=== PATIENT | female | born 1960 | race American Indian/Alaskan Native ===

== ENCOUNTER 2017-10-25 07:18 | Day surgery (SDC) | payer MEDICARE, BC ==
[2017-10-25] MEDS ORDERED: NACL 0.9% 1000 ML 1,000 ML IV SCH (08:00)
[2017-10-25] MEDS ORDERED: WATER FOR IRRIG STERILE IR ONE (08:19)
[2017-10-25] MEDS ORDERED: DIPRIVAN 10 MG/ML IV ONE ×3 (08:27→08:43)
[2017-10-25] MEDS ORDERED: XYLOCAINE MPF 2% ONE (08:30)
--- NOTE | 2017-10-25 09:07 | Anesthesia Day of Surgery ---
Anesthesia Day of Surgery - Day of Surgery Patient Examined: Yes Patient H&P Reviewed: Yes Patient is NPO: Yes
--- NOTE | 2017-10-25 09:18 | Short Stay Summary ---
Short Stay Documentation - Allergies and Medications Current Medications: Allergies No Known Allergies Allergy (Verified 10/24/17 14:57) Home Medications Medication Instructions Recorded Confirmed Last Taken Type Dialyvite 800 Plus D Wafer 1 tab PO DAILY 10/24/17 10/24/17 10/24/17 History Metoprolol 50 mg PO DAILY 10/24/17 10/24/17 10/24/17 History Ranitidine HCl 150 mg PO DAILY 10/24/17 10/24/17 10/24/17 History Renvela 800 mg PO DAILY 10/24/17 10/24/17 10/24/17 History Sensipar 30 mg PO Q3W 10/24/17 10/24/17 10/24/17 History amLODIPine 10 mg PO DAILY 10/25/17 10/25/17 10/24/17 History Active Medications Sodium Chloride (Nacl 0.9% 1000 Ml) 1,000 mls @ 50 mls/hr IV DIRECT LJ - Brief post op/procedure progress note Date of procedure: 10/25/17 Pre-op diagnosis: 1. Colon cancer screening 2. Anemia iron deficiency anemia Post-op diagnosis: same (1. Internal hemorrhoids 2. Poor prep) Procedure: Colonoscopy Anesthesia: MAC Findings: as above Surgeon: GERARD RAINES Estimated blood loss: none Pathology: none Specimen disposition: to lab - Disposition Condition at discharge: Stable Disposition: -01 TO HOME OR SELFCARE Short Stay Discharge Plan Activity: no restrictions Weight Bearing Status: Full Weight Bearing Diet: regular, low salt, renal
--- NOTE | 2017-10-25 09:19 | Anesthesia Consultation ---
Anesthesia Consult and Med Hx Date of service: 10/25/17 - Airway Anesthetic Teeth Evaluation: Poor, Partials (upper) ROM Head & Neck: Adequate Mental/Hyoid Distance: Adequate Mallampati Class: Class I Intubation Access Assessment: Good - Pulmonary Exam CTA: Yes - Cardiac Exam Cardiac Exam: RRR - Pre-Operative Health Status ASA Pre-Surgery Classification: ASA3 Proposed Anesthetic Plan: MAC - Cardiovascular System Hx Hypertension: Yes - Endocrine Hx Renal Disease: Yes Hx End Stage Renal Disease: Yes
[2017-10-25 09:56] VITALS: BP 109/56
--- NOTE | 2017-10-25 11:26 | Post Anesthesia Evaluation ---
- Post Anesthesia Evaluation Patient Participated: Yes Airway Patent: Yes Stable Respiratory Function: Yes Nausea/Vomiting: No Temp > 96.8F: Yes Pain Manageable: Yes Adequeate Hydration: Yes Anesthesia Complications: No
== END 2017-10-25 07:19 | disposition home or self-care (01) ==
LOC: GIO 07:18
PROVIDERS: ATTEND Internal Medicine Gastroenterology
DX: K29.80 Duodenitis without bleeding (principal); K29.50 Unspecified chronic gastritis without bleeding; K21.9 Gastro-esophageal reflux disease without esophagitis; K64.0 First degree hemorrhoids; D50.9 Iron deficiency anemia, unspecified; D50.0 Iron deficiency anemia secondary to blood loss (chronic); I12.0 Hypertensive chronic kidney disease with stage 5 chronic kidney disease or end stage renal disease; N18.6 End stage renal disease
CPT/HCPCS: 43239; 45378; 88305; 88342; J2704; J7030